=== PATIENT | female | born 1975 | race Native Hawaiian/Other Pacific Islander ===

== ENCOUNTER 2022-06-13 17:14 | Outpatient (CLI) | payer OTHER | END 2022-06-13 19:02 | disposition home or self-care (01) | LOC: RAD 17:14 | PROVIDERS: ATTEND Physician Assistant | DX: M54.59 Other low back pain (principal) ==

== ENCOUNTER 2022-12-13 08:53 | Outpatient (CLI) | payer OTHER | END 2022-12-13 21:44 | disposition home or self-care (01) | LOC: RAD 08:53 | PROVIDERS: ATTEND Physician Assistant | DX: M54.2 Cervicalgia (principal) ==

== ENCOUNTER 2023-03-28 08:21 | Outpatient (CLI) | payer OTHER | END 2023-03-28 20:46 | LOC: RAD 08:21 | PROVIDERS: ATTEND Physician Assistant | DX: M54.2 Cervicalgia (principal) ==

== ENCOUNTER 2023-03-28 10:20 | Outpatient (CLI) | payer OTHER | END 2023-03-28 20:51 | LOC: RAD 10:20 | PROVIDERS: ATTEND Physician Assistant | DX: M54.16 Radiculopathy, lumbar region (principal) ==

== ENCOUNTER 2023-08-01 13:30 | Outpatient (CLI) | payer OTHER | END 2023-08-01 19:39 | disposition home or self-care (01) | LOC: MRI 13:30 | PROVIDERS: ATTEND Physician Assistant | DX: M48.061 Spinal stenosis, lumbar region without neurogenic claudication (principal) ==